=== PATIENT | male | born 1955 | race Two or more races ===

== ENCOUNTER 2018-12-31 08:30 | Outpatient (CLI) | payer OTHER | END 2018-12-31 11:35 | disposition home or self-care (01) | LOC: TOM 08:30 | DX: N40.0 Benign prostatic hyperplasia without lower urinary tract symptoms (principal); R97.20 Elevated prostate specific antigen [PSA]; N20.0 Calculus of kidney ==

== ENCOUNTER 2020-04-17 08:06 | Outpatient (CLI) | payer OTHER | END 2020-04-17 08:11 | disposition home or self-care (01) | LOC: TOM 08:06 | PROVIDERS: ATTEND Internal Medicine Hematology & Oncology | DX: C83.18 Mantle cell lymphoma, lymph nodes of multiple sites (principal) ==

== ENCOUNTER 2020-08-21 07:10 | Outpatient (CLI) | payer OTHER | END 2020-08-21 12:31 | disposition home or self-care (01) | LOC: TOM 07:10 | PROVIDERS: ATTEND Internal Medicine Hematology & Oncology | DX: C83.18 Mantle cell lymphoma, lymph nodes of multiple sites (principal) ==

== ENCOUNTER 2021-08-28 07:24 | Outpatient (CLI) | payer OTHER | END 2021-08-28 07:34 | disposition home or self-care (01) | LOC: TOM 07:24 | PROVIDERS: ATTEND Internal Medicine Hematology & Oncology | DX: Q61.02 Congenital multiple renal cysts (principal); C83.18 Mantle cell lymphoma, lymph nodes of multiple sites; K76.0 Fatty (change of) liver, not elsewhere classified ==

== ENCOUNTER 2021-12-16 09:02 | Outpatient (CLI) | payer OTHER | END 2021-12-16 16:59 | disposition home or self-care (01) | LOC: SONOGRAMA 09:02 | PROVIDERS: ATTEND Urology | DX: R33.9 Retention of urine, unspecified (principal); R31.1 Benign essential microscopic hematuria; C83.18 Mantle cell lymphoma, lymph nodes of multiple sites ==

== ENCOUNTER 2022-04-16 07:31 | Outpatient (CLI) | payer OTHER | END 2022-04-16 07:32 | disposition home or self-care (01) | LOC: TOM 07:31 | DX: C83.18 Mantle cell lymphoma, lymph nodes of multiple sites (principal) ==

== ENCOUNTER 2022-09-10 08:21 | Outpatient (CLI) | payer OTHER | END 2022-09-10 08:33 | disposition home or self-care (01) | LOC: TOM 08:21 | PROVIDERS: ATTEND Internal Medicine Hematology & Oncology | DX: C83.18 Mantle cell lymphoma, lymph nodes of multiple sites (principal) ==

== ENCOUNTER 2023-01-15 07:14 | Outpatient (CLI) | payer OTHER | END 2023-01-15 07:25 | disposition home or self-care (01) | LOC: SONOGRAMA 07:14 | PROVIDERS: ATTEND Internal Medicine Nephrology | DX: N28.1 Cyst of kidney, acquired (principal); J98.4 Other disorders of lung ==

== ENCOUNTER 2023-03-24 08:59 | Outpatient (CLI) | payer OTHER | END 2023-03-24 09:06 | disposition home or self-care (01) | LOC: TOM 08:59 | PROVIDERS: ATTEND Internal Medicine Hematology & Oncology | DX: C83.18 Mantle cell lymphoma, lymph nodes of multiple sites (principal) ==

== ENCOUNTER 2023-04-10 10:55 | Outpatient (CLI) | payer OTHER | END 2023-04-10 11:00 | disposition home or self-care (01) | LOC: RAD 10:55 | PROVIDERS: ATTEND Internal Medicine Pulmonary Disease | DX: G47.33 Obstructive sleep apnea (adult) (pediatric) (principal); J45.20 Mild intermittent asthma, uncomplicated; C83.12 Mantle cell lymphoma, intrathoracic lymph nodes; E03.9 Hypothyroidism, unspecified; J06.9 Acute upper respiratory infection, unspecified ==

== ENCOUNTER 2023-10-12 10:05 | Outpatient (CLI) | payer OTHER | END 2023-10-12 10:30 | disposition home or self-care (01) | LOC: TOM 10:05 | PROVIDERS: ATTEND Internal Medicine Hematology & Oncology | DX: C83.18 Mantle cell lymphoma, lymph nodes of multiple sites (principal) ==